=== PATIENT | male | born 1995 | race Caucasian/White ===

== ENCOUNTER 2017-11-15 15:53 | Emergency (ER) | payer OTHER ==
[~2017-11-15] VITALS: Ht 170.2 cm; Wt 90.0 kg
[2017-11-15 16:05] VITALS: BP 126/75; PULSE 126; RESP 16; TEMP 99.4; O2SAT 100
[2017-11-15 18:22] VITALS: BP 130/72; PULSE 126; RESP 16; TEMP 97.9; O2SAT 97
[2017-11-15] MEDS ORDERED: SODIUM CHLOR 0.9% 1000 ML INJ 1,000 ML IV ONE ×3 (18:28→22:00)
[2017-11-15] MEDS ORDERED: SODIUM CHLORIDE 0.9% FLUSH 10 ML FLUSH IVF PRN (18:30)
[2017-11-15] MEDS ORDERED: PROMETHAZINE INJ 25 MG/ML VIAL IM ONE (18:30)
[2017-11-15 18:34] VITALS: O2SAT 98
[2017-11-15] MEDS ORDERED: VENTAER INH (18:35)
[2017-11-15 19:21] LABS: AUTOMATED NEUTROPHIL # 8.9 TH/MM3 (1.8-7.7); BASOPHIL % 0.1 % (0.0-2.0); EOSINOPHIL % 0.1 % (0.0-4.0); HEMATOCRIT 48.5 % (39.0-51.0); HEMOGLOBIN 16.9 GM/DL (13.0-17.0); LYMPH % 2.3 % (9.0-44.0); LYMPHOCYTE # 0.2 TH/MM3 (1.0-4.8); MEAN CELL VOLUME 82.4 FL (80.0-100.0); MEAN CORPUSCULAR HEMOGLOBIN 28.7 PG (27.0-34.0); MEAN CORPUSCULAR HGB CONC 34.8 % (32.0-36.0); MEAN PLATELET VOLUME 9.4 FL (7.0-11.0); MONO % 3.9 % (0.0-8.0); MONOCYTE # 0.4 TH/MM3 (0-0.9); NEUT % 93.6 % (16.0-70.0); PLATELET COUNT 201 TH/MM3 (150-450); RED BLOOD COUNT 5.88 MIL/MM3 (4.50-5.90); RED CELL DISTRIBUTION WIDTH 12.9 % (11.6-17.2); WHITE BLOOD COUNT 9.5 TH/MM3 (4.0-11.0)
[2017-11-15 19:31] LABS: ALBUMIN 4.7 GM/DL (3.4-5.0); ALT (GPT) 39 U/L (9-52); AST (GOT) 22 U/L (15-39); BICARBONATE 25.4 MEQ/L (21.0-32.0); BLOOD UREA NITROGEN 17 MG/DL (7-18); CALCIUM 9.2 MG/DL (8.5-10.1); CHLORIDE 104 MEQ/L (98-107); CREATININE 1.09 MG/DL (0.60-1.30); GLOMERULAR FILTRATION RATE 86 ML/MIN (>89); GLUCOSE,RANDOM 108 MG/DL (74-106); SODIUM (NA) 138 MEQ/L (136-145)
[2017-11-15 19:33] LABS: ALKALINE PHOSPHATASE 106 U/L (45-117); TOTAL BILIRUBIN ADULT 3.4 MG/DL (0.2-1.0); TOTAL PROTEIN 8.4 GM/DL (6.4-8.2)
--- NOTE | 2017-11-15 19:36 | PD ---
HPI Chief Complaint: GI Complaint Time Seen by Provider: 18:27 Travel History International Travel<30 days: No Contact w/Intl Traveler<30days: No Traveled to known affect area: No History of Present Illness HPI This is a 22-year-old male with no past medical history, presents today with complaint of fever nausea vomiting diarrhea. Patient states it started roughly 22 hours ago. He denies any abdominal pain. He states that he has had multiple different foods over the last 24 hours. He is unsure whether he had anything that was bad or not. He has no ill contacts. There are no other complaints at time of examination. [facility] Past Medical History Asthma: Yes Influenza Vaccination: Yes Past Surgical History Surgical History: No Previous Surgery Social History Alcohol Use: No Tobacco Use: No Substance Use: No Allergies-Medications (Allergen,Severity, Reaction): Coded Allergies: No Known Allergies (Unverified , 11/15/17) Reported Meds & Prescriptions Reported Meds & Active Scripts Active Reported Ventolin Hfa 18 GM Inh (Albuterol Sulfate) 90 Mcg/Act Aer 2 Puff INH Q4-6H PRN Review of Systems Except as stated in HPI: all other systems reviewed are Neg General / Constitutional: Positive: Fever, No: Chills HENT: No: Headaches, Neck Pain Cardiovascular: No: Chest Pain or Discomfort, Palpitations Respiratory: No: Cough, Shortness of Breath Gastrointestinal: Positive: Nausea, Vomiting, Diarrhea, No: Abdominal Pain Genitourinary: No: Dysuria, Decreased Urinary Output Musculoskeletal: No: Weakness, Pain Neurologic: No: Weakness, Dizziness, Headache Physical Exam Narrative GENERAL: Well-developed well-nourished male in no acute respiratory distress. SKIN: Focused skin assessment warm/dry. HEAD: Atraumatic. Normocephalic. EYES: Pupils equal and round. No scleral icterus. No injection or drainage. ENT: No nasal bleeding or discharge. Mucous membranes pink and moist. NECK: Trachea midline. Supple. CARDIOVASCULAR: Sinus tach rate of 114. No murmur appreciated. RESPIRATORY: No accessory muscle use. Clear to auscultation. Breath sounds equal bilaterally. GASTROINTESTINAL: Abdomen soft, non-tender, nondistended. MUSCULOSKELETAL: No obvious deformities. No clubbing. No cyanosis. No edema. NEUROLOGICAL: Awake and alert. No obvious cranial nerve deficits. Motor grossly within normal limits. Normal speech. PSYCHIATRIC: Appropriate mood and affect; insight and judgment normal. Data Data Last Documented VS Vital Signs Date Time Temp Pulse Resp B/P (MAP) Pulse Ox O2 Delivery O2 Flow Rate FiO2 11/15/17 18:34 (91) 98 Room Air 11/15/17 18:22 97.9 126 16 Orders Orders Complete Blood Count With Diff (11/15/17 18:28) Comprehensive Metabolic Panel (11/15/17 18:) Iv Access Insert/Monitor (11/15/17 18:) Ecg Monitoring (11/15/17 18:28) Oximetry (11/15/17 18:28) Sodium Chlor 0.9% 1000 Ml Inj (Ns 1000 M (11/15/17 18:28) Sodium Chloride 0.9% Flush (Ns Flush) (11/15/17 18:30) Promethazine Inj (Phenergan Inj) (11/15/17 18:30) Labs Laboratory Tests Test 11/15/17 18:30 White Blood Count 9.5 TH/MM3 Red Blood Count 5.88 MIL/MM3 Hemoglobin 16.9 GM/DL Hematocrit 48.5 % Mean Corpuscular Volume 82.4 FL Mean Corpuscular Hemoglobin 28.7 PG Mean Corpuscular Hemoglobin Concent 34.8 % Red Cell Distribution Width 12.9 % Platelet Count 201 TH/MM3 Mean Platelet Volume 9.4 FL Neutrophils (%) (Auto) 93.6 % Lymphocytes (%) (Auto) 2.3 % Monocytes (%) (Auto) 3.9 % Eosinophils (%) (Auto) 0.1 % Basophils (%) (Auto) 0.1 % Neutrophils # (Auto) 8.9 TH/MM3 Lymphocytes # (Auto) 0.2 TH/MM3 Monocytes # (Auto) 0.4 TH/MM3 Eosinophils # (Auto) 0.0 TH/MM3 Basophils # (Auto) 0.0 TH/MM3 CBC Comment DIFF FINAL Differential Comment Blood Urea Nitrogen 17 MG/DL Creatinine 1.09 MG/DL Random Glucose 108 MG/DL Albumin 4.7 GM/DL Calcium Level 9.2 MG/DL Aspartate Amino Transf (AST/SGOT) 22 U/L Alanine Aminotransferase (ALT/SGPT) 39 U/L Sodium Level 138 MEQ/L Potassium Level 3.8 MEQ/L Chloride Level 104 MEQ/L Carbon Dioxide Level 25.4 MEQ/L Anion Gap 9 MEQ/L Estimat Glomerular Filtration Rate 86 ML/MIN MDM Medical Decision Making Medical Screen Exam Complete: Yes Emergency Medical Condition: Yes Differential Diagnosis Viral versus bacterial gastroenteritis versus appendicitis versus peptic ulcer disease Narrative Course 22-year-old male presents with nausea vomiting fever and diarrhea. Patient actually states he feels better now. The patient is nontoxic. That is completely soft abdomen. There is no rebound or guarding. White blood cell count was within normal limits. His electrolytes are pending at this time. Patient be signed out to Dr. Analisa Kinney, physician replaced me at change of shift. I anticipate the patient will likely be able to did be discharged home with a prescription for nausea medicine. The patient has been given 1 L of IV fluid. Diagnosis Primary Impression: Nausea vomiting and diarrhea Reid Hernandez MD Nov 15, 2017 19:36
[2017-11-15] MEDS ORDERED: ZOFR4TAB PO (19:46)
--- NOTE | 2017-11-15 19:46 | PD ---
Physical Exam Date Seen by Provider: Nov 15, 2017 Data Data Last Documented VS Vital Signs Date Time Temp Pulse Resp B/P (MAP) Pulse Ox O2 Delivery O2 Flow Rate FiO2 11/15/17 21:18 124 16 126/67 (86) 99 Room Air 11/15/17 20:19 99.1 Orders Orders Complete Blood Count With Diff (11/15/17 18:28) Comprehensive Metabolic Panel (11/15/17 18:28) Iv Access Insert/Monitor (11/15/17 18:28) Ecg Monitoring (11/15/17 18:28) Oximetry (11/15/17 18:28) Sodium Chlor 0.9% 1000 Ml Inj (Ns 1000 M (11/15/17 18:28) Sodium Chloride 0.9% Flush (Ns Flush) (11/15/17 18:30) Promethazine Inj (Phenergan Inj) (11/15/17 18:30) Sodium Chlor 0.9% 1000 Ml Inj (Ns 1000 M (11/15/17 19:45) Ct Pulmonary Angiogram (11/15/17 21:47) Sodium Chlor 0.9% 1000 Ml Inj (Ns 1000 M (11/15/17 22:00) Iohexol 350 Inj (Omnipaque 350 Inj) (11/15/17 22:42) Labs Laboratory Tests Test 11/15/17 18:30 White Blood Count 9.5 TH/MM3 Red Blood Count 5.88 MIL/MM3 Hemoglobin 16.9 GM/DL Hematocrit 48.5 % Mean Corpuscular Volume 82.4 FL Mean Corpuscular Hemoglobin 28.7 PG Mean Corpuscular Hemoglobin Concent 34.8 % Red Cell Distribution Width 12.9 % Platelet Count 201 TH/MM3 Mean Platelet Volume 9.4 FL Neutrophils (%) (Auto) 93.6 % Lymphocytes (%) (Auto) 2.3 % Monocytes (%) (Auto) 3.9 % Eosinophils (%) (Auto) 0.1 % Basophils (%) (Auto) 0.1 % Neutrophils # (Auto) 8.9 TH/MM3 Lymphocytes # (Auto) 0.2 TH/MM3 Monocytes # (Auto) 0.4 TH/MM3 Eosinophils # (Auto) 0.0 TH/MM3 Basophils # (Auto) 0.0 TH/MM3 CBC Comment DIFF FINAL Differential Comment Blood Urea Nitrogen 17 MG/DL Creatinine 1.09 MG/DL Random Glucose 108 MG/DL Total Protein 8.4 GM/DL Albumin 4.7 GM/DL Calcium Level 9.2 MG/DL Alkaline Phosphatase 106 U/L Aspartate Amino Transf (AST/SGOT) 22 U/L Alanine Aminotransferase (ALT/SGPT) 39 U/L Total Bilirubin 3.4 MG/DL Sodium Level 138 MEQ/L Potassium Level 3.8 MEQ/L Chloride Level 104 MEQ/L Carbon Dioxide Level 25.4 MEQ/L Anion Gap 9 MEQ/L Estimat Glomerular Filtration Rate 86 ML/MIN [facility] Medical Record Reviewed: Yes Supervised Visit with ZORAIDA: No Narrative Course Patient was sent out to me by Dr. Hernandez at change of shift. Patient pending lab work as well as reevaluation and ultimate disposition of patient. Patient is a 22-year-old male who presents the emergency room for evaluation of fevers with nausea, vomiting and diarrhea which started roughly 22 hours ago. Patient reports that he thinks that he may have a stomach bug, reports no sick contacts, reports that he is here on vacation. Patient concerned that he may have eaten something which caused him to get sick. Patient denies any abdominal pain, denies any cough or congestion. Patient was given promethazine as well as 1 L of IV fluids. Vital Signs Date Time Temp Pulse Resp B/P (MAP) Pulse Ox O2 Delivery O2 Flow Rate FiO2 11/15/17 18:34 (91) 98 Room Air 11/15/17 18:22 97.9 126 16 130/72 (91) 97 Room Air 11/15/17 16:05 99.4 126 16 126/75 (92) 100 CBC & BMP Diagram 11/15/17 18:30 Total Protein 8.4 H, Albumin 4.7, Calcium Level 9.2, Alkaline Phosphatase 106, Aspartate Amino Transf (AST/SGOT) 22, Alanine Aminotransferase (ALT/SGPT) 39, Total Bilirubin 3.4 H Patient reevaluated, patient reports that he is feeling much better at this time. Patient reports resolution of nausea and vomiting. Abdomen is soft, nontender, nondistended, there are no peritoneal signs. Patient with most likely viral syndrome. Signs and symptoms of an acute abdomen were reviewed with patient, he will return to the emergency room as needed. Patient with persistent tachycardia with heart rate in with 120s-130s after 2 L of IV fluids, patient reports no complaints, reports that he feels fine. Patient reports only history of heart murmurs, no history of tachycardia in the past. Patient denies any shortness of breath. Patient did recently drive from [place] to [place] for vacation, I will order a CTA to rule out PE -patient agreeable to plan of care. Last Impressions CT Angiography 11/15/172146 Signed Impressions: CONCLUSION: Unremarkable study except for possibly borderline splenomegaly. CTA with no evidence of PE. Patient with asymptomatic persistent tachycardia. Patient wishes to be discharged from the hospital at this time. Patient reports that he will follow-up with his primary care doctor when he goes back to [place] for workup of his tachycardia. Diagnosis Primary Impression: Nausea vomiting and diarrhea Additional Impression: Tachycardia Patient Instructions: General Instructions Additional Instruction: Please provide patient with a copy of their lab work and studies at discharge* * Please follow up with your primary care doctor as soon as possible for work your of your tachycardia Return to the ER if symptoms worsen or progress Return to the ER as needed Med/Other Pt SpecificInfo: Prescription(s) given Scripts Ondansetron (Zofran) 4 Mg Tab 4 MG PO Q6HR Y for NAUSEA OR VOMITING, #20 TAB 0 Refills Prov: Analisa Kinney DO 11/15/17 Disposition: 01 DISCHARGE HOME Condition: Stable Analisa Kinney DO Nov 15, 2017 19:46
[2017-11-15 20:19] VITALS: TEMP 99.1
[2017-11-15 21:18] VITALS: BP 126/67; PULSE 124; RESP 16; O2SAT 99
[2017-11-15] MEDS ORDERED: IOHEXOL 350 MG/ML 10 ML VIAL (for RAD DIAG) IVCONTRAST ONE (22:42)
--- NOTE | 2017-11-15 22:45 | RADRPT ---
EXAM DATE: 11/15/2017 10:41 PM EDT AGE/SEX: 22 years / Male INDICATIONS: Tachycardia. CLINICAL DATA: This is the patient's initial encounter. Patient reports that signs and symptoms have been present for 1 day and indicates a pain score of 0/10. MEDICAL/SURGICAL HISTORY: None. . RADIATION DOSE: 10.46 CTDI (mGy) COMPARISON: No prior exams available for comparison. TECHNIQUE: Volumetric scanning was performed using a multi-row detector CT scanner during bolus infu leigha of 60 ml Omnipaque 350 (iohexol) nonionic water-soluble contrast as a single exam dose. The santiago a was post processed with a variety of visualization algorithms including full volume maximum intensi ty projection and sliding thin slab reformation. Using automated exposure control and adjustment of the mA and/or kV according to patient size, radiation dose was kept as low as reasonably achievable t o obtain optimal diagnostic quality images. FINDINGS: The lungs are clear without infiltrate, nodule, or mass. There is no pleural effusion. No appreciab le pathological adenopathy is seen within the mediastinum. Spleen measures 12.2 cm in AP diameter. T here is no PE. CONCLUSION: Unremarkable study except for possibly borderline splenomegaly. Electronically signed by: Evi Rodríguez MD 11/15/2017 10:44 PM EDT
== END 2017-11-16 00:24 | disposition home or self-care (01) ==
LOC: NEPC 15:53
DX: R11.2 Nausea with vomiting, unspecified (principal); R19.7 Diarrhea, unspecified; R00.0 Tachycardia, unspecified; R50.9 Fever, unspecified
CPT/HCPCS: 71275; 80053; 85025; 96360; 96361; 96372; 99285; J2550; J7030; Q9967